=== PATIENT | male | born 2000 | race African-American/Black ===

== ENCOUNTER 2021-02-16 18:11 | Emergency (ER) | payer OTHER ==
[~2021-02-16] VITALS: Ht 175.3 cm; Wt 77.1 kg
[2021-02-16 19:07] LABS: CALCIUM 9.5 mg/dL (8.5-10.1); POTASSIUM 3.7 mmol/L (3.5-5.1)
[2021-02-16 19:09] LABS: ABSOLUTE NEUTROPHILS 5.9 thou/uL (1.4-8.2); BASOPHILS 0.5 % (0.0-2.0); EOSINOPHILS 0.5 % (0.0-3.0); HEMATOCRIT 42.5 % (42.0-52.0); LYMPHOCYTES 24.1 % (24.0-44.0); MCH 31.8 pg (26.0-34.0); MCV 96.4 fL (80.0-100.0); MONOCYTES 8.5 % (1.0-8.0); PLATELET COUNT 220 thou/uL (150-400); POLYS 66.4 % (36.0-66.0); RBC 4.41 mil/uL (4.50-6.00); RDW 13.8 % (10.5-14.5); WBC 8.9 thou/uL (4.0-11.0)
[2021-02-16 19:14] LABS: ALBUMIN 4.2 g/dL (3.4-5.0); TOTAL BILIRUBIN 0.6 mg/dL (0.2-1.0); TOTAL PROTEIN 7.9 g/dL (6.4-8.2)
[2021-02-16 19:18] LABS: URINE BLOOD NEGATIVE (Negative); URINE CLARITY CLEAR; URINE COLOR YELLOW; URINE GLUCOSE-RANDOM* NEGATIVE (Negative); URINE KETONES TRACE (Negative); URINE LEUKOCYTES-REFLEX TRACE (Negative); URINE NITRITE-REFLEX NEGATIVE (Negative); URINE PROTEIN (DIPSTICK) TRACE (Negative); URINE UROBILINOGEN 0.2 E.U./dl (0.2-1.0)
[2021-02-16 19:26] LABS: ICTOTEST (BILI CONFIRMATORY) Negative (Negative); URINE BILIRUBIN NEGATIVE (Negative)
[2021-02-16 19:31] LABS: CASTS None Seen /LPF (None Seen); CRYSTALS None Seen /LPF (None Seen); MUCUS >6 Heavy strn/LPF (None Seen); SQUAMOUS None Seen /LPF (0-3); URINE RBC None Seen /HPF (NONE SEEN); URINE WBC-REFLEX 6-15 Few /HPF (0-5)
[2021-02-16] MEDS ORDERED: ADDERALL XR 2020 MG PO (19:45)
[2021-02-16] MEDS ORDERED: ZOFRAN ODT4 MG PO (22:00)
[2021-02-16] MEDS ORDERED: CARAFATE 1 GM TA1 G1 PO (22:00)
[2021-02-16] MEDS ORDERED: OMEPRAZOLE40 MG PO (22:00)
[2021-02-16 22:10] VITALS: BP 115/87
== END 2021-02-16 22:10 | disposition home or self-care (01) ==
LOC: EDSEX 18:11 → ER 18:11
PROVIDERS: Physician Assistant
DX: K29.60 Other gastritis without bleeding (principal); R10.13 Epigastric pain; Z20.822 Contact with and (suspected) exposure to COVID-19

== ENCOUNTER 2021-03-05 13:41 | Emergency (ER) | payer OTHER ==
[~2021-03-05] VITALS: Ht 175.3 cm; Wt 77.1 kg
[~2021-03-05 13:41] MED LIST: ADDERALL XR 2020 MG PO; CARAFATE 1 GM TA1 G1 PO; OMEPRAZOLE40 MG PO; ZOFRAN ODT4 MG PO
[2021-03-05] MEDS ORDERED: NORCO 10-325 T1 EACH PO (16:09)
[2021-03-05] MEDS ORDERED: BACTRIM DS TAB1 EACH PO (16:09)
[2021-03-05 16:36] VITALS: BP 108/40
== END 2021-03-05 16:36 | disposition home or self-care (01) ==
LOC: ER 13:41
DX: L02.31 Cutaneous abscess of buttock (principal)